=== PATIENT | male | born 1965 | race Caucasian/White ===

== ENCOUNTER 2017-05-14 18:06 | Emergency (ER) | payer OTHER ==
[~2017-05-14] VITALS: Ht 165.1 cm; Wt 80.7 kg
[~2017-05-14 18:06] MED LIST: COZAAR25 MG; LEVAQUIN750 MG PO; METOPROLOL SUCC25 MG
[2017-05-14] MEDS ORDERED: PROTONIX40 M1 (18:13)
[2017-05-14] MEDS ORDERED: ZANTAC300 MG (18:13)
[2017-05-14] MEDS ORDERED: KETO10TA2 PO (20:44)
[2017-05-14] MEDS ORDERED: NORFLEX100MG PO (20:44)
== END 2017-05-14 21:03 | disposition home or self-care (01) ==
LOC: ER 18:06
DX: R51 Headache (principal); R42 Dizziness and giddiness

== ENCOUNTER 2019-04-02 20:28 | Emergency (ER) | payer OTHER ==
[~2019-04-02] VITALS: Ht 165.1 cm; Wt 81.6 kg
[~2019-04-02 20:28] MED LIST changes: +KETO10TA2 PO; +NORFLEX100MG PO; +PROTONIX40 M1; +ZANTAC300 MG
[2019-04-02] MEDS ORDERED: NORVASC10 MG (21:35)
[2019-04-03] MEDS ORDERED: DICY20TA PO (07:54)
[2019-04-03] MEDS ORDERED: INTESTINEX680 M1 PO (07:54)
== END 2019-04-03 10:24 | disposition home or self-care (01) ==
LOC: ER 20:28
DX: K52.89 Other specified noninfective gastroenteritis and colitis (principal); B34.9 Viral infection, unspecified

== ENCOUNTER 2020-05-26 23:07 | Emergency (ER) | payer OTHER ==
[~2020-05-26] VITALS: Ht 165.1 cm; Wt 84.8 kg
[~2020-05-26 23:07] MED LIST changes: +DICY20TA PO; +INTESTINEX680 M1 PO; +NORVASC10 MG
[2020-05-26] MEDS ORDERED: COZAAR100 MG (23:27)
[2020-05-26] MEDS ORDERED: NORVASC5 MG (23:27)
== END 2020-05-27 05:14 | disposition home or self-care (01) ==
LOC: ER 23:07
DX: R42 Dizziness and giddiness (principal)

== ENCOUNTER 2020-09-23 18:56 | Emergency (ER) | payer OTHER ==
[~2020-09-23] VITALS: Ht 165.1 cm; Wt 86.2 kg
[~2020-09-23 18:56] MED LIST changes: +COZAAR100 MG; +NORVASC5 MG
[2020-09-24] MEDS ORDERED: PROTONIX40 MG PO (01:41)
[2020-09-24] MEDS ORDERED: PEPCID40 MG PO (01:41)
[2020-09-24] MEDS ORDERED: LEVSIN/SL0.125 MG SL (01:42)
== END 2020-09-24 01:52 ==
LOC: ER 18:56
DX: R10.13 Epigastric pain (principal)

== ENCOUNTER 2021-04-04 16:21 | Emergency (ER) | payer OTHER ==
[~2021-04-04] VITALS: Ht 165.1 cm; Wt 81.6 kg
[~2021-04-04 16:21] MED LIST changes: +LEVSIN/SL0.125 MG SL; +PEPCID40 MG PO; +PROTONIX40 MG PO
[2021-04-04] MEDS ORDERED: CORTISPORIN EAR10 M1 OT (21:47)
[2021-04-04] MEDS ORDERED: MECLIZINE HCL25 MG PO (21:47)
== END 2021-04-04 22:37 | disposition home or self-care (01) ==
LOC: ER 16:21
DX: R42 Dizziness and giddiness (principal)